=== PATIENT | female | born 1985 | race Caucasian/White ===

== ENCOUNTER 2016-08-17 11:37 | Inpatient (IN) | payer BC, MEDICAID ==
[~2016-08-17] VITALS: Ht 162.6 cm; Wt 75.7 kg
[~2016-08-17 11:37] MED LIST: ASPI81CH3 PO; FOLITAB13 PO; PROG100C PO; prenatal vitamin
--- NOTE | 2016-08-24 08:12 | MH ---
cc: ROS ELI DATE OF ADMISSION 08/24/2016 PREOPERATIVE DIAGNOSIS 1. Intrauterine at 39 weeks. 2. Desires permanent sterilization. HISTORY Anne Marie is a 31-year-old female para 2-0-5-2 whose estimated date of confinement is 08/31/2016. She is being brought into the hospital for repeat section and tubal ligation. She understands the risks and benefits of the procedure and has agreed to proceed. PAST OB HISTORY She is para 2-0-5-2. She had two sections 2011 and 2013. She has MTHFR mutation and a previous history of depression. She is also habitual aborter. 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 Her last Pap smear was negative. PAST MEDICAL HISTORY Her past medical history is remarkable for the MTHFR mutation. PAST SURGICAL HISTORY Her past surgical history is remarkable for: 1. section x2 2. Cholecystectomy SOCIAL HISTORY She has never smoked. She is . She does not drink alcohol. FAMILY HISTORY Negative ALLERGIES No known drug allergies. MEDICATIONS Her current medications are: 1. vitamins one p.o. q. Day 2. Folgard RX one p.o. 3. RX for Prozac was given to start once the baby arrives. REVIEW OF SYSTEMS She denies any headaches, no shortness of breath. No chest pain or chest pressure. No shortness of breath. She reports good movement. No rupture of membranes and no bleeding. PHYSICAL EXAM This is a well-developed, well-nourished female in no acute distress. NECK: Supple. Trachea is in the midline. No thyromegaly or adenopathy. CHEST: Clear to auscultation and percussion. HEART: Regular rate and rhythm without murmur or gallop. ABDOMEN: Gravid and nontender. There is a well-healed Pfannenstiel incision. PELVIC: The pelvic exam was deferred. EXTREMITIES: There is slight lower extremity swelling. ASSESSMENT/PLAN 1. Intrauterine at 39 weeks 2. Previous x2, we will repeat that now and all do a tubal ligation since she desires permanent sterilization. 3. History of depression which was quite severe. We will go ahead and start her on some Prozac as soon as the baby arrives. We will watch her in the period as well. R. MD PAUL Herring/DJL /7:49 AM /8:00 AM
[2016-08-24] MEDS ORDERED: LACTATED RINGER'S 1000 ML INJ 1,000 ML IV ONE (10:54)
[2016-08-24 11:12] LABS: BASOPHIL % 0.2 % (0.0-2.0); EOSINOPHIL # 0.1 TH/MM3 (0-0.4); EOSINOPHIL % 0.5 % (0.0-4.0); HEMATOCRIT 36.2 % (35.0-46.0); HEMO FLAGS DIFF FINAL; LYMPH % 11.4 % (9.0-44.0); LYMPHOCYTE # 1.2 TH/MM3 (1.0-4.8); MEAN CELL VOLUME 89.4 FL (80.0-100.0); MEAN CORPUSCULAR HEMOGLOBIN 31.3 PG (27.0-34.0); MEAN CORPUSCULAR HGB CONC 35.1 % (32.0-36.0); MONO % 5.3 % (0.0-8.0); NEUT % 82.6 % (16.0-70.0); PLATELET COUNT 179 TH/MM3 (150-450); RED BLOOD COUNT 4.05 MIL/MM3 (4.00-5.30); RED CELL DISTRIBUTION WIDTH 13.5 % (11.6-17.2); WHITE BLOOD COUNT 10.9 TH/MM3 (4.0-11.0)
[2016-08-24] MEDS ORDERED: OXYTOCIN 10 UNIT/ML AMP ONE (11:12)
[2016-08-24] MEDS ORDERED: LACTATED RINGER'S 1000 ML INJ 1,000 ML IV SCH (11:24)
[2016-08-24 11:30] VITALS: RESP 19
[2016-08-24 11:31] LABS: BLOOD, URINE TRACE (NEG); COMMENT (UR) CULTURE INDICATED; CULTURE IF INDICATED CULTURE INDICATED; GLUCOSE,URINE NEG (NEG); HYALINE CAST, URINE 1 /lpf (RARE); KETONE, URINE NEG (NEG); MUCUS URINE FEW /lpf (OCC); NITRITE,URINE NEG (NEG); PH, URINE 6.5 (5.0-8.5); SQUAMOUS EPITHELIAL CELL URINE 13 /hpf (0-5); URINE COLOR YELLOW (YELLW/STRAW)
[2016-08-24 11:34] LABS: BACTERIA, URINE MOD /hpf
[2016-08-24] MEDS ORDERED: DICLOFENAC SODIUM 37.5 MG/ML VIAL IV PUSH ONE ×2 (12:21→13:47)
[2016-08-24] MEDS ORDERED: CITRIC ACID-SODIUM CITRATE LIQ 30 ML UDC PO SCH (12:30)
[2016-08-24] MEDS ORDERED: MORPHINE SULFATE PF 5 MG/10 ML VIAL ONE (13:40)
[2016-08-24] MEDS ORDERED: ONDANSETRON HCL 4 MG/2 ML VIAL ONE (13:40)
[2016-08-24] MEDS ORDERED: LACTATED RINGER'S 1,000 ML BAG IV ONE (13:55)
[2016-08-24] MEDS ORDERED: OXYTOCIN 30 UNITS-500ML PREMIX 500 ML ONE (14:10)
[2016-08-24] MEDS ORDERED: EPIDURAL-DO NOT ADMINISTER ANTICOAGULANTS XX PRN (15:00)
[2016-08-24] MEDS ORDERED: DICLOFENAC SODIUM 37.5 MG/ML VIAL IV PUSH SCH (15:00)
[2016-08-24] MEDS ORDERED: EPIDURAL-DIPHENHYDRAMINE HCL 50 MG/ML VIAL IV PUSH PRN (15:00)
[2016-08-24] MEDS ORDERED: EPIDURAL-DIPHENHYDRAMINE HCL 50 MG CAP PO PRN (15:00)
[2016-08-24] MEDS ORDERED: EPIDURAL-NALOXONE HCL 0.4 MG/ML AMP IV PRN (15:00)
[2016-08-24] MEDS ORDERED: EPIDURAL-NO SYSTEMIC NARCOTICS XX PRN (15:00)
[2016-08-24] MEDS ORDERED: DIPHTH/TETANUS/ACEL PERTUSSIS (BOOSTER) 0.5 ML VIAL/PFS IM ONE (16:00)
[2016-08-24] MEDS ORDERED: MEASLES, MUMPS, RUBELLA VACCINE 0.5 ML VIAL SQ ONE (16:00)
[2016-08-24] MEDS ORDERED: OXYTOCIN 30 UNITS-500ML PREMIX 500 ML IV ONE (18:00)
[2016-08-24] MEDS ORDERED: ACETAMINOPHEN 325 MG TAB PO PRN (18:00)
[2016-08-24] MEDS ORDERED: WITCH HAZEL 50%/GLYCERIN 12.5% 40 PAD JAR TOPICAL PRN (18:00)
[2016-08-24] MEDS ORDERED: ZOLPIDEM TARTRATE 5 MG TAB PO PRN (18:00)
[2016-08-24] MEDS ORDERED: ALUMINUM/MAGNESIUM/SIMETH 30 ML CUP PO PRN (18:00)
[2016-08-24] MEDS ORDERED: BENZOCAINE 20% TOPICAL SPRAY 60 ML CAN TOPICAL PRN (18:00)
[2016-08-24] MEDS ORDERED: SODIUM CHLORIDE 0.9% FLUSH 5 ML FLUSH IV PRN (18:00)
[2016-08-24] MEDS ORDERED: ONDANSETRON ODT 4 MG TAB PO PRN (18:00)
[2016-08-24 19:27] VITALS: BP 100/61; PULSE 74; RESP 16; TEMP 99
[2016-08-24] MEDS ORDERED: SODIUM CHLORIDE 0.9% FLUSH 5 ML FLUSH IV SCH (21:00)
[2016-08-24] MEDS: oxyCODONE/ACETAMINOPHEN 5 MG/325 MG TAB PO PRN (22:29)
[2016-08-24] MEDS: IBUPROFEN 600 MG TAB PO PRN (22:29)
[2016-08-24 23:00] VITALS: BP 91/54; PULSE 75; RESP 16; TEMP 98.7
[2016-08-25 03:58] VITALS: BP 86/51; PULSE 63; RESP 16; TEMP 97.9
[2016-08-25] MEDS: oxyCODONE/ACETAMINOPHEN 5 MG/325 MG TAB PO PRN ×4 (04:15→17:06)
[2016-08-25] MEDS: IBUPROFEN 600 MG TAB PO PRN ×3 (04:15→17:06)
[2016-08-25] MEDS: DOCUSATE SODIUM 50 MG/SENNA 8.6 MG TAB PO PRN ×2 (04:17→17:05)
[2016-08-25 07:57] VITALS: BP 93/64; PULSE 85; RESP 20; TEMP 97.8
--- NOTE | 2016-08-25 07:58 | HHI.OB ---
Subjective Post Operative Day: 1 Remarks Doing well, pain is well controlled Baby is doing well. Bleeding is normal. Objective Vitals/I&O Vital Signs Date Time Temp Pulse Resp B/P Pulse Ox O2 Delivery O2 Flow Rate FiO2 08/25/16 05:15 16 08/25/16 05:15 16 08/25/16 03:58 97.9 16 08/25/16 03:58 63 86/51 08/24/16 23:00 98.7 75 16 91/54 08/24/16 19:27 99.0 08/24/16 19:27 74 16 100/61 08/24/16 11:30 19 Result Diagram: 08/24/16 1030 Objective Remarks GENERAL: Well-nourished, well-developed patient. CARDIOVASCULAR: Regular rate and rhythm without murmurs, gallops, or rubs. RESPIRATORY: Breath sounds equal bilaterally. No accessory muscle use. ABDOMEN/GI: Abdomen soft, non-tender, bowel sounds present. Incision: Clean, dry and intact. Fundus: Firm, non-tender at umbilicus. GENITOURINARY: Light to moderate bleeding. EXTREMITIES: No cyanosis or edema, non-tender, without signs of DVT. Medications and IVs Current Medications Medications (Trade) Dose Ordered Sig/Nickolas Route Start Time Stop Time Status Last Admin (NS Flush) 2 ml BID IV 08/24/16 21:00 (NS Flush) 2 ml UNSCH PRN IV 08/24/16 18:00 (Tylenol) 650 mg Q4H PRN PO 08/24/16 18:00 (Motrin) 600 mg Q6H PRN PO 08/24/16 18:00 08/25/16 04:15 (Percocet 5-325 Mg) 1 tab Q4H PRN PO 08/24/16 18:00 08/25/16 04:15 (Percocet 5-325 Mg) 2 tab Q4H PRN PO 08/24/16 18:00 (Americaine 20% Top Spr) 1 spray Q4H PRN TOPICAL 08/24/16 18:00 (Tucks Pads) 1 applic QID PRN TOPICAL 08/24/16 18:00 (Doris-Colace) 2 tab Q12H PRN PO 08/24/16 18:00 08/25/16 04:17 (Ambien) 5 mg HS PRN PO 08/24/16 18:00 (Mag-Al Plus Susp Liq) 15 ml Q8H PRN PO 08/24/16 18:00 (Zofran Odt) 4 mg Q6H PRN PO 08/24/16 18:00 Assessment/Plan Assessment and Plan POD #1 Check CBC from this am Doing well, Routine care Discharge Planning Home tomorrow or next day. Leighton Silver MD Aug 25, 2016 07:58
--- NOTE | 2016-08-25 10:20 | MP ---
cc: ROS ELI DATE OF SURGERY 08/24/2016 PREOPERATIVE DIAGNOSIS 1. Intrauterine at 39 weeks 2. Previous section. 3. Desires permanent sterilization. POSTOPERATIVE DIAGNOSIS 1. Intrauterine at 39 weeks 2. Previous section. 3. Desires permanent sterilization. 4. Large peritoneal window PROCEDURE Repeat low transverse section, excision of old scar and bilateral tubal ligation. ANESTHESIA Spinal SURGEON Umer Eli MD FINDINGS The lower uterine segment had a large peritoneal window approximately 9 cm x 6 cm with the bladder overlying this window. The fallopian tubes were normal in length and caliber. The ovaries were normal. The posterior and anterior cul-de-sacs were otherwise normal. Normal female , 's 9 and 9, weight 7 pounds 4 ounces. COMPLICATIONS Hematuria at the end of the case, probably to the bladder dissection. COUNTS The counts were correct. ESTIMATED BLOOD LOSS 500 cc FLUIDS Crystalloids CONDITION The patient tolerated the procedure well and went to the recovery room in good condition. PROCEDURE The patient was taken to the operating room, identified by name band and verbally given a spinal anesthetic and under adequate level, was prepped and draped in the usual sterile fashion for a section. Once she had been prepped and draped and the Landers catheter inserted, a time-out was taken and once this had been accomplished, the old Pfannenstiel incision was excised and the incision taken down to the fascia. The fascia was taken off the rectus muscle by blunt and sharp dissection and the rectus muscles were spread bluntly and the peritoneum entered under direct vision without difficulty. The incision was extended with care to avoid injury to the urinary bladder and at this time the bladder blade was placed and we noticed this large peritoneal window. The bladder was tacked up on the lower uterine segment over this peritoneal window and required dissection down to allow us to close the uterine incision once we had made it. There was a very thin lining of just the bag of cloud the abdominal cavity from the intrauterine cavity. Once we had taken at the bladder down far enough, we incised over the peritoneal window and the head was easily seen. The vertex was grasped, lifted upwards and with gentle fundal pressure was delivered. Hypopharynx and nasopharynx were suctioned. The remainder of the infant was delivered and the cord was doubly clamped and cut after a 45-second wait. At this point, the baby was handed to the resuscitation team and the cord blood was obtained. The placenta was removed manually without difficulty. The uterus was delivered from the abdomen and curettaged twice with a wet lap. We did work a little bit more on the bladder to get it out of harms way. This was a pretty difficult dissection. Then we repaired the uterine incision with a 0 Vicryl in a running fashion in two layers the second layer imbricating the first. Once this had been accomplished, attention was turned to the fallopian tubes and they were knuckled over and taken with a two plain gut suture and handed off for pathologic evaluation. The cul-de-sac and gutters were cleaned of blood and debris and the uterus delivered back into the abdomen. The uterine incision was inspected and it was dry. The rectus muscles were then reapproximated with 0 Vicryl in interrupted fashion. The fascia was repaired with 0 Vicryl from lateral to midline bilaterally in a running fashion. The subcu was irrigated with some fluid and undermined to allow a beautiful closure. The cutaneous layer was closed with 3-0 Vicryl and the skin was closed with a 4-0 Monocryl in a subcuticular fashion with excellent results. At this time, the procedure was terminated and the wound was sterilely dressed. At this time, we did notice a little hematuria probably from all the bladder dissection. I do not feel that we got into the bladder, but we will watch this carefully. She tolerated the procedure well and went to the recovery room in good condition. R. MD PAUL Herring/DEMOND /1:41 PM /10:01 AM
[2016-08-25 10:39] LABS: AUTOMATED NEUTROPHIL # 11.4 TH/MM3 (1.8-7.7); BASOPHIL % 0.3 % (0.0-2.0); EOSINOPHIL # 0.1 TH/MM3 (0-0.4); EOSINOPHIL % 0.7 % (0.0-4.0); HEMATOCRIT 36.4 % (35.0-46.0); LYMPHOCYTE # 1.1 TH/MM3 (1.0-4.8); MEAN CELL VOLUME 90.6 FL (80.0-100.0); MEAN CORPUSCULAR HEMOGLOBIN 31.3 PG (27.0-34.0); MEAN CORPUSCULAR HGB CONC 34.6 % (32.0-36.0); MONO % 4.3 % (0.0-8.0); NEUT % 86.7 % (16.0-70.0); PLATELET COUNT 170 TH/MM3 (150-450); RED BLOOD COUNT 4.02 MIL/MM3 (4.00-5.30); WHITE BLOOD COUNT 13.2 TH/MM3 (4.0-11.0)
[2016-08-25 10:40] LABS: HEMO FLAGS AUTO DIFF
[2016-08-25 11:51] LABS: BANDS 3 % (0-6); EOSINOPHILS 1 % (0-4); METAMYELOCYTES 1 % (0-1); POLYS (SEG NEUTROPHILS) 79 % (16-70); WBC DIFF SAMPLE 100
[2016-08-25 12:10] LABS: PLATELET ESTIMATE SMEAR NORMAL (NORMAL); PLATELET MORPHOLOGY NORMAL (NORMAL); SCAN/DIFF FINAL DIFF MANUAL
[2016-08-25 12:12] LABS: TOXIC GRANULATION 1+ (NORMAL)
[2016-08-25] MEDS ORDERED: OXYC1TAB63 PO (13:52)
[2016-08-25] MEDS ORDERED: IBUP-232 PO (13:52)
[2016-08-25 16:00] VITALS: BP 103/67; PULSE 79; RESP 18; TEMP 98.7
[2016-08-25 20:00] VITALS: BP 92/55; PULSE 69; RESP 18; TEMP 98.1
[2016-08-26] MEDS: IBUPROFEN 600 MG TAB PO PRN ×4 (00:18→19:59)
[2016-08-26] MEDS: oxyCODONE/ACETAMINOPHEN 5 MG/325 MG TAB PO PRN ×4 (00:18→19:59)
[2016-08-26 08:00] VITALS: BP 95/57; PULSE 75; RESP 16; TEMP 97.7
--- NOTE | 2016-08-26 09:53 | HHI.OB ---
Subjective Post Operative Day: 2 Remarks Doing well does not plan to nurse desires her prozac now to avoid PPD pain controlled no other issues had BTL Objective Vitals/I&O Vital Signs Date Time Temp Pulse Resp B/P Pulse Ox O2 Delivery O2 Flow Rate FiO2 08/25/16 20:00 98.1 69 18 08/25/16 20:00 92/55 08/25/16 18:30 16 08/25/16 18:30 16 08/25/16 16:00 79 103/67 08/25/16 16:00 98.7 18 08/25/16 13:18 16 Result Diagram: 08/25/16 1023 Objective Remarks GENERAL: Well-nourished, well-developed patient. CARDIOVASCULAR: Regular rate and rhythm without murmurs, gallops, or rubs. RESPIRATORY: Breath sounds equal bilaterally. No accessory muscle use. ABDOMEN/GI: Abdomen soft, non-tender, bowel sounds present. Incision: Clean, dry and intact. Fundus: Firm, non-tender at umbilicus. GENITOURINARY: Light to moderate bleeding. EXTREMITIES: No cyanosis or edema, non-tender, without signs of DVT. Medications and IVs Current Medications Medications (Trade) Dose Ordered Sig/Nickolas Route Start Time Stop Time Status Last Admin (NS Flush) 2 ml BID IV 08/24/16 21:00 (NS Flush) 2 ml UNSCH PRN IV 08/24/16 18:00 (Tylenol) 650 mg Q4H PRN PO 08/24/16 18:00 (Motrin) 600 mg Q6H PRN PO 08/24/16 18:00 08/26/16 08:06 (Percocet 5-325 Mg) 1 tab Q4H PRN PO 08/24/16 18:00 08/26/16 08:07 (Percocet 5-325 Mg) 2 tab Q4H PRN PO 08/24/16 18:00 08/25/16 17:06 (Americaine 20% Top Spr) 1 spray Q4H PRN TOPICAL 08/24/16 18:00 (Tucks Pads) 1 applic QID PRN TOPICAL 08/24/16 18:00 (Doris-Colace) 2 tab Q12H PRN PO 08/24/16 18:00 08/25/16 17:05 (Ambien) 5 mg HS PRN PO 08/24/16 18:00 (Mag-Al Plus Susp Liq) 15 ml Q8H PRN PO 08/24/16 18:00 08/26/16 08:07 (Zofran Odt) 4 mg Q6H PRN PO 08/24/16 18:00 Assessment/Plan Assessment and Plan POD 2 begin prozac anticipate discharge in am POD 3 Discharge Planning home on Sunday. Tosha Pereira MD Aug 26, 2016 09:53
[2016-08-26] MEDS: FLUoxetine HCL 20 MG CAP PO SCH (11:21)
[2016-08-26 20:00] VITALS: BP 109/67; PULSE 74; RESP 18; TEMP 97.9; O2SAT 98
[2016-08-27] MEDS: oxyCODONE/ACETAMINOPHEN 5 MG/325 MG TAB PO PRN ×3 (02:05→12:14)
[2016-08-27] MEDS: IBUPROFEN 600 MG TAB PO PRN ×2 (02:05→08:21)
[2016-08-27 08:00] VITALS: BP 102/60; PULSE 76; RESP 16; TEMP 98.2
[2016-08-27] MEDS: DOCUSATE SODIUM 50 MG/SENNA 8.6 MG TAB PO PRN (08:21)
[2016-08-27] MEDS: FLUoxetine HCL 20 MG CAP PO SCH (08:21)
--- NOTE | 2016-08-27 11:10 | HHI.OB ---
Subjective Post Operative Day: 3 Remarks Doing well bottling has started prozac ready for discharge post special meal Objective Vitals/I&O Vital Signs Date Time Temp Pulse Resp B/P Pulse Ox O2 Delivery O2 Flow Rate FiO2 08/27/16 08:00 98.2 76 16 102/60 08/27/16 08:00 98.2 76 16 102/60 08/26/16 20:00 97.9 74 18 98 08/26/16 20:00 109/67 Result Diagram: 08/25/16 1023 Objective Remarks GENERAL: Well-nourished, well-developed patient. CARDIOVASCULAR: Regular rate and rhythm without murmurs, gallops, or rubs. RESPIRATORY: Breath sounds equal bilaterally. No accessory muscle use. ABDOMEN/GI: Abdomen soft, non-tender, bowel sounds present. Incision: Clean, dry and intact. Fundus: Firm, non-tender at umbilicus. GENITOURINARY: Light to moderate bleeding. EXTREMITIES: No cyanosis or edema, non-tender, without signs of DVT. Medications and IVs Current Medications Medications (Trade) Dose Ordered Sig/Nickolas Route Start Time Stop Time Status Last Admin (NS Flush) 2 ml BID IV 08/24/16 21:00 (NS Flush) 2 ml UNSCH PRN IV 08/24/16 18:00 (Tylenol) 650 mg Q4H PRN PO 08/24/16 18:00 (Motrin) 600 mg Q6H PRN PO 08/24/16 18:00 08/27/16 08:21 (Percocet 5-325 Mg) 1 tab Q4H PRN PO 08/24/16 18:00 08/26/16 08:07 (Percocet 5-325 Mg) 2 tab Q4H PRN PO 08/24/16 18:00 08/27/16 08:21 (Americaine 20% Top Spr) 1 spray Q4H PRN TOPICAL 08/24/16 18:00 (Tucks Pads) 1 applic QID PRN TOPICAL 08/24/16 18:00 (Doris-Colace) 2 tab Q12H PRN PO 08/24/16 18:00 08/27/16 08:21 (Ambien) 5 mg HS PRN PO 08/24/16 18:00 (Mag-Al Plus Susp Liq) 15 ml Q8H PRN PO 08/24/16 18:00 08/26/16 08:07 (Zofran Odt) 4 mg Q6H PRN PO 08/24/16 18:00 (PROzac) 20 mg DAILY PO 08/26/16 11:00 08/27/16 08:21 Assessment/Plan Assessment and Plan POD 3 begin prozac home today Discharge Planning home on Sunday. Tosha Pereira MD Aug 27, 2016 11:10
[2016-08-27] MEDS ORDERED: FLUO20CA4 PO (11:12)
== END 2016-08-27 13:57 | disposition home or self-care (01) | DRG 765 ==
LOC: H2EB 08-24 10:07 → H1EA 08-24 14:58
PROVIDERS: ADMIT Obstetrics & Gynecology; ATTEND Obstetrics & Gynecology
PROC: 10D00Z1 Extraction of Products of Conception, Low, Open Approach (ICD-10-PCS; principal; 2016-08-24)
PROC: 0UT70ZZ Resection of Bilateral Fallopian Tubes, Open Approach (ICD-10-PCS; 2016-08-24)
DX: O26.23 Pregnancy care for patient with recurrent pregnancy loss, third trimester (principal); E72.12 Methylenetetrahydrofolate reductase deficiency; O34.211 Maternal care for low transverse scar from previous cesarean delivery; O99.344 Other mental disorders complicating childbirth; O90.6 Postpartum mood disturbance; R31.9 Hematuria, unspecified; O67.8 Other intrapartum hemorrhage; Z30.2 Encounter for sterilization; Z37.0 Single live birth; Z3A.39 39 weeks gestation of pregnancy
CPT/HCPCS: 59025; 81001; 85007; 85025; 85027; 86850; 86900; 86901; 87086; 88302; J0690; J1130; J1200; J2274; J2405; J2590; J3010; J7120